=== PATIENT | female | born 2000 | race Caucasian/White ===

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

== ENCOUNTER 2019-02-12 08:41 | Emergency (ER) | payer OTHER ==
[2019-02-12 09:10] VITALS: BP 115/76
--- NOTE | 2019-02-12 09:40 | UC ---
Abdominal Pain Female HPI - HPI Summary HPI Summary: abdominal pain x 2 hrs pain is severe 10 our of 10, worse with standing, nothing make it asael no n/v/d/c, no fever, no chills - History of Current Complaint Chief Complaint: UCAbdominalPain Stated Complaint: RIB/SHOULDER PAIN Time Seen by Provider: 02/12/19 09:01 Hx Obtained From: Patient Hx Last Menstrual Period: 2 YEARS AGO. PT IS TRANSGENDER Onset/Duration: Gradual Onset, Lasting Hours - 2, Still Present Timing: Constant Severity Initially: Severe Severity Currently: Severe Pain Intensity: 8 Pain Scale Used: 0-10 Numeric Radiates: No Character: Sharp Aggravating Factor(s): Movement Alleviating Factor(s): Nothing Associated Signs and Symptoms: Positive: Diarrhea. Negative: Diaphoresis, Fever , Cough, Chest Pain, Back Pain, Constipation, Blood in Stool, Urinary Symptoms, Decreased Appetite, Vaginal Bleeding, Nausea, Vomiting Allergies/Adverse Reactions: Allergies Allergy/AdvReac Type Severity Reaction Status Date / Time No Known Allergies Allergy Verified 02/12/19 08:54 Home Medications: Home Medications D-Methorphan/PE/Acetaminophen [Vicks Dayquil Cold & Flu] 1 cap PO PRN 02/12/19 [ History] Loperamide CAP* [Imodium CAP*] 2 mg PO Q4H PRN 02/12/19 [History Confirmed 02/12] Testosterone Cypionate 100 mg IM WEEKLY 02/12/19 [History Confirmed 02/12/19] diPHENhydraMINE PO* [Benadryl PO 25 MG TAB*] 25 mg PO Q6H PRN 02/12/19 [History Confirmed 02/12/19] PMH/Surg Hx/FS Hx/Imm Hx - Additional Past Medical History Additional PMH: IBS TRANSGENDER - Surgical History Surgical History: None - Family History Known Family History: Positive: Hypertension - Social History Alcohol Use: None Substance Use Type: None Smoking Status (MU): Never Smoked Tobacco - Immunization History Most Recent Influenza Vaccination: Not the Season Vaccination Up to Date: Yes Review of Systems All Other Systems Reviewed And Are Negative: Yes Constitutional: Positive: Negative Skin: Positive: Negative Eyes: Positive: Negative ENT: Positive: Negative Respiratory: Positive: Negative Gastrointestinal: Positive: Abdominal Pain, Diarrhea. Negative: Vomiting, Nausea Is Patient Immunocompromised?: No Physical Exam Triage Information Reviewed: Yes Appearance: No Pain Distress, Thin Vital Signs: Initial Vital Signs Temp 97.8 F 02/12/19 09:00 Pulse 77 02/12/19 09:00 Resp 18 02/12/19 09:00 BP 115/76 02/12/19 09:00 Pulse Ox 99 02/12/19 09:00 Vital Signs Reviewed: Yes Eyes: Positive: Conjunctiva Clear ENT: Positive: Normal ENT inspection, Hearing grossly normal, Pharynx normal Neck: Positive: Supple, Nontender, No Lymphadenopathy Respiratory: Positive: Chest non-tender, Lungs clear, Normal breath sounds Cardiovascular: Positive: RRR, No Murmur, Pulses Normal Abdomen Description: Positive: Soft, Other: - epigastric tenderness. Negative: CVA Tenderness (R), CVA Tenderness (L), Distended, Guarding Musculoskeletal Exam: Normal Skin Exam: Normal Abd Pain Female Course/Dx - Differential Dx/Diagnosis Provider Diagnosis: Epigastric pain Discharge ED - Sign-Out/Discharge Documenting (check all that apply): Patient Departure All imaging exams completed and their final reports reviewed: No Studies - Discharge Plan Condition: Stable Disposition: HOME Patient Education Materials: Acute Abdominal Pain (ED) Referrals: Fabien Jovel MD [Primary Care Provider] - Additional Instructions: not sure what is causing your sever 10 out of 10 pain without any other symptoms please go to [facility] ED for evaluation and tx - Billing Disposition and Condition Condition: STABLE Disposition: Home
== END 2019-02-12 09:26 | disposition home or self-care (01) ==
LOC: UCCORT 08:41
DX: R10.13 Epigastric pain (principal)
CPT/HCPCS: 99212; G0463